=== PATIENT | female | born 1995 | race Caucasian/White ===

== ENCOUNTER 2022-11-14 23:01 | Emergency (ER) | payer OTHER ==
[~2022-11-14] VITALS: Ht 165.1 cm; Wt 67.6 kg
--- NOTE | 2022-11-14 23:12 | NUR ---
PT TO BED 11 FOR TRIAGE
[2022-11-14 23:17] VITALS: BP 109/74
--- NOTE | 2022-11-14 23:17 | NUR ---
PT GIVEN URINE CUP AND AMBULATES TO RESTROOM TO PROVIDE SPECIMEN
--- NOTE | 2022-11-14 23:25 | NUR ---
DR. WEISS AT BEDSIDE FOR EXAM
[2022-11-14] MEDS ORDERED: ONDANSETRON 4 MG TAB PO ONE (23:40)
[2022-11-15 00:12] LABS: APPEARANCE,URINE CLEAR (CLEAR); BILIRUBIN,URINE NEGATIVE (NEGATIVE); BLOOD, URINE NEGATIVE (NEGATIVE); COLOR,URINE YELLOW (YELLOW); LEUKOCYTE ESTERASE ,URINE TRACE (NEGATIVE); NITRITE, URINE NEGATIVE (NEGATIVE); UGLUCOSE NEGATIVE (NEGATIVE)
[2022-11-15 00:51] LABS: RBC,URINE 0-5 /HPF (0-5)
[2022-11-15] MEDS ORDERED: cefTRIAXone 1,000 MG in LIDOCAINE MPF 1% 2.1 ML IM ONE (01:05)
[2022-11-15] MEDS ORDERED: ONDA-188 SL (01:16)
[2022-11-15] MEDS ORDERED: NITR100C7 PO (01:16)
[2022-11-15] MEDS ORDERED: cefTRIAXone 1,000 MG VIAL ONE (01:19)
[2022-11-15] MEDS ORDERED: LIDOCAINE MPF 1% 5 ML ONE (01:19)
[2022-11-15 01:20] VITALS: BP 109/74
--- NOTE | 2022-11-15 01:28 | NUR ---
Patient discharged with v/s stable. Written and verbal after care instructions given and explained. Patient alert, oriented and verbalized understanding of instructions. Ambulatory with steady gait. All questions addressed prior to discharge. ID band removed. Patient advised to follow up with PMD. Rx of ZOFRAN, MACROBID given. Patient educated on indication of medication including possible reaction and side effects. Opportunity to ask questions provided and answered.
== END 2022-11-15 01:20 | disposition home or self-care (01) ==
LOC: MED 23:01
DX: N39.0 Urinary tract infection, site not specified (principal); R11.0 Nausea; Z79.899 Other long term (current) drug therapy
CPT/HCPCS: 81001; 81025; 87086; 96372; 99283; J0696; J2001; Q0162

== ENCOUNTER 2023-08-13 21:33 | Emergency (ER) | payer OTHER ==
[~2023-08-13] VITALS: Ht 165.1 cm; Wt 61.4 kg
[~2023-08-13 21:33] MED LIST: NITR100C7 PO; ONDA-188 SL
[2023-08-13 21:54] VITALS: BP 100/53; PULSE 67; RESP 18; TEMP 98; O2SAT 100
[2023-08-13 22:35] LABS: APPEARANCE,URINE CLEAR (CLEAR); BILIRUBIN,URINE NEGATIVE (NEGATIVE); BLOOD, URINE NEGATIVE (NEGATIVE); COLOR,URINE YELLOW (YELLOW); LEUKOCYTE ESTERASE ,URINE 1+ (NEGATIVE); NITRITE, URINE NEGATIVE (NEGATIVE); PROTEIN,URINE NEGATIVE (NEGATIVE); UGLUCOSE NEGATIVE (NEGATIVE); UROBILINOGEN,URINE 0.2 EU/dL (0.2 - 1)
[2023-08-13 23:07] LABS: BACTERIA,URINE 1+ /HPF (None Seen); RBC,URINE NONE SEEN /HPF (0-5); SQUAMOUS EPITHELIAL CELL,UR 4-10 (MOD) /LPF (0-3 (FEW)); WBC,URINE 0-5 /HPF (0-5)
[2023-08-14] MEDS ORDERED: ACET-10509 PO (00:54)
[2023-08-14] MEDS ORDERED: DOCU-299 PO (00:54)
[2023-08-14] MEDS ORDERED: NITR100C7 PO (00:54)
[2023-08-14 01:05] VITALS: BP 95/53; PULSE 61; RESP 16; TEMP 98; O2SAT 100
== END 2023-08-14 01:05 | disposition home or self-care (01) ==
LOC: MED 21:33
DX: O26.892 Other specified pregnancy related conditions, second trimester (principal); O28.8 Other abnormal findings on antenatal screening of mother; Z3A.14 14 weeks gestation of pregnancy; Z79.899 Other long term (current) drug therapy
CPT/HCPCS: 81001; 81025; 87086; 99284

== ENCOUNTER 2024-04-30 11:35 | Emergency (ER) | payer OTHER ==
[~2024-04-30] VITALS: Ht 165.1 cm; Wt 63.5 kg
[~2024-04-30 11:35] MED LIST changes: +ACET-10509 PO; +DOCU-299 PO
[2024-04-30 11:41] VITALS: BP 107/63; PULSE 61; RESP 16; TEMP 97.6; O2SAT 100
[2024-04-30 12:05] VITALS: O2SAT 100
[2024-04-30] MEDS ORDERED: CEPH-588 PO (12:12)
[2024-04-30] MEDS ORDERED: BACI-418 TP (12:12)
== END 2024-04-30 12:44 | disposition home or self-care (01) ==
LOC: MED 11:38
DX: L08.9 Local infection of the skin and subcutaneous tissue, unspecified (principal); Z79.1 Long term (current) use of non-steroidal anti-inflammatories (NSAID); Z79.2 Long term (current) use of antibiotics; Z79.899 Other long term (current) drug therapy
CPT/HCPCS: 99283